=== PATIENT | female | born 1990 | race Hispanic/Latino ===

== ENCOUNTER 2018-06-30 10:22 | Emergency (ER) | payer OTHER ==
--- OUTSIDE RECORDS SUMMARY | 2018-06-30 10:43 | XMS REPORT ---
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
--- OUTSIDE RECORDS SUMMARY | 2018-06-30 10:43 | XMS REPORT ---
:1990 Author Organization eClinicalWorks Care Team Providers Name Role Phone Genevieve Vuong Provider Role Unavailable Allergies, Adverse Reactions, Alerts Substance Reaction Event Type Percocet Info Not Available Drug Allergy Problems Problem Type Condition Code Onset Dates Condition Status Problem Allergic rhinitis, unspecified J30.9 Active seasonality, unspecified trigger Problem Cervical radiculopathy M54.12 Active Problem Chronic back pain M54.9 Active Problem H/O chlamydia infection Z86.19 Active Problem Absent periods N91.2 Active Problem IUD (intrauterine device) in place Z97.5 Active Problem H/O gonorrhea Z86.19 Active Problem Other chronic pain G89.29 Active Problem Hx of ectopic Z87.59 Active Problem H/O unilateral salpingectomy Z90.79 Active Assessment H/O gonorrhea Z86.19 Active Assessment H/O chlamydia infection Z86.19 Active Assessment Hx of ectopic Z87.59 Active Assessment IUD (intrauterine device) in place Z97.5 Active Assessment H/O unilateral salpingectomy Z90.79 Active Assessment IUD check up Z30.431 Active Medications Medication Code Code Instructions Start End Status Dosage System Date Date Probiotic [facility] [id number] - Orally Active not defined Mirena (52 MG) [facility] [id number] 20 MCG/24HR Mar 02, Active not Intrauterine 2013 defined Tramadol HCl [facility] [id number] 50 MG Orally Active 1 tablet every 6 hrs as needed Results No Known Results Summary Purpose eClinicalWorks Submission
--- OUTSIDE RECORDS SUMMARY | 2018-06-30 10:43 | XMS REPORT ---
:1990 [facility] Team Providers Name Role Phone Bob De Leon Provider Role Unavailable Allergies, Adverse Reactions, Alerts Substance Reaction Event Type Percocet Info Not Available Drug Allergy Problems Problem Type Condition Code Onset Dates Condition Status Problem IUD (intrauterine device) in place Z97.5 Active Problem Absent periods N91.2 Active Problem Hx of ectopic Z87.59 Active Problem Repetitive intrusions of sleep G47.9 Active Problem Encounter for removal of Z30.432 Active intrauterine contraceptive device (IUD) Problem Daytime somnolence R40.0 Active Problem H/O gonorrhea Z86.19 Active Problem H/O chlamydia infection Z86.19 Active Problem Encounter for initial prescription Z30.011 Active of contraceptive pills Problem H/O unilateral salpingectomy Z90.79 Active Assessment Encounter to determine O36.80X0 Active viability of , single or unspecified fetus Assessment Encounter for supervision of Z34.91 Active low-risk in first trimester Problem Allergic rhinitis, unspecified J30.9 Active seasonality, unspecified trigger Problem Chronic back pain M54.9 Active Assessment Amenorrhea N91.2 Active Problem Cervical radiculopathy M54.12 Active Problem Other chronic pain G89.29 Active Medications Medication Code Code Instructions Start End Status Dosage System Date Date Pre-Ran NDC 0 - Orally Once a Active 1 tablet day CitraNatal NDC 61300040717 35-1 & 300 MG Jun 07, Active as directed Assure Orally daily 2018 Results Name Result Date Reference Range Unit Abnormality Flag HEMOGLOBIN A1c ----HEMOGLOBIN A1c 5.1 48089860 <5.7 % of total N Hgb TSH ----TSH 2.18 92026208 mIU/L N OBSTETRIC PANEL ----ABSOLUTE 42 10946992 0-200 cells/uL N BASOPHILS ----ABSOLUTE 83 39369820 15-500 cells/uL N EOSINOPHILS ----LYMPHOCYTES 20.2 95004119 % N ----NEUTROPHILS 73.1 07581593 % N ----PLATELET COUNT 268 95041597 140-400 Thousand/uL N ----EOSINOPHILS 0.8 01716323 % N ----RDW 12.1 61735064 11.0-15.0 % N ----MONOCYTES 5.5 79399151 % N ----MCHC 33.4 36665441 32.0-36.0 g/dL N ----MCH 31.3 61822327 27.0-33.0 pg N ----MCV 93.8 88896978 80.0-100.0 fL N ----ABSOLUTE 7602 59406918 7417-5668 cells/uL N NEUTROPHILS ----MPV 10.8 21402281 7.5-12.5 fL N ----ABSOLUTE 572 25112896 200-950 cells/uL N MONOCYTES ----ABSOLUTE 2101 59738343 850-3900 cells/uL N LYMPHOCYTES ----BASOPHILS 0.4 81492573 % N ----ANTIBODY NO ANTIBODIES 20180607 N SCREEN, RBC W/REFL DETECTED ID, TITER AND AG ----ABO GROUP A [id number] ----RH TYPE RH(D) POSITIVE 20180607 ----RPR (DX) NON-REACTIVE [id number] NON-REACTIVE N W/REFL TITER AND CONFIRMATORY TESTING ----HEPATITIS B NON-REACTIVE [id number] NON-REACTIVE N SURFACE ANTIGEN ----RUBELLA 2.31 42767311 index N ANTIBODY (IGG) ----WHITE BLOOD 10.4 45629959 3.8-10.8 Thousand/uL N CELL COUNT ----RED BLOOD CELL 3.86 24763880 3.80-5.10 Million/uL N COUNT ----HEMOGLOBIN 12.1 06423171 11.7-15.5 g/dL N ----HEMATOCRIT 36.2 25670258 35.0-45.0 % N VARICELLA ZOSTER VIRUS AB (IGG) ----VARICELLA 994.80 15232629 index N ZOSTER VIRUS ANTIBODY (IGG) HIV AG/AB 4TH GEN ----HIV AG/AB, 4TH NON-REACTIVE [id number] NON-REACTIVE N GEN Summary Purpose eClinicalWorks Submission
[2018-06-30 11:12] LABS: Urine Blood TRACE (NEG); Urine Glucose NEGATIVE (NEG); Urine Protein NEGATIVE (NEG); Urine Specific Gravity 1.015 (1.005-1.030)
[2018-06-30 11:22] LABS: Absolute Monocytes 0.6 K/uL (0.1-1.3); Absolute Neutrophil 7.2 K/uL (1.8-8.0); Basophils % 0.3 % (0-1.3); Eosinophils % 1.1 % (0-4.4); Hematocrit 35.2 % (36.0-45.0); Lymphocytes % 20.1 % (15.3-44.8); MPV 7.9 fL (7.6-11.3); Monocytes % 6.2 % (3.3-12.3); RBC Red Blood Cell Count 3.82 M/uL (3.86-4.86)
[2018-06-30 11:22] LABS: Urine Bacteria <20 /HPF (<20); Urine Culture Reflex Order NOT NEEDED; Urine RBC <5 /HPF (NONE SEEN)
[2018-06-30] MEDS ORDERED: NA CHLORIDE 0.9% 1,000 ML ONE (11:28)
[2018-06-30] MEDS ORDERED: ACETAMINOPHEN 500 MG TAB ONE (11:28)
[2018-06-30 11:34] LABS: BUN Blood Urea Nitrogen 9 mg/dL (7-18); Bicarbonate 26 mmol/L (21-32); Glucose Level 90 mg/dL (74-106); Potassium 3.7 mmol/L (3.5-5.1); Sodium Level 140 mmol/L (136-145)
--- NOTE | 2018-06-30 12:19 | EDPHYS ---
Physician Documentation [facility] Name: Eliana Glez Age: 27 yrs Sex: Female : 1990 Arrival Date: 06/30/2018 Time: 10:26 Bed 18 Private MD: [facility] ED Physician Sean Sanchez HPI: 06/30 11:36 This 27 yrs old Female presents to ER via Ambulatory with complaints of 12 wks jr8 , Abdominal Pain. 11:36 Onset: The symptoms/episode began/occurred acutely, today. Associated signs and jr8 symptoms: Pertinent positives: headache. Modifying factors: The patient symptoms are alleviated by nothing, the patient symptoms are aggravated by nothing. The patient has not experienced similar symptoms in the past. The patient has not recently seen a physician. Stated that she was generally not feeling well. Started to have lower right abdominal cramping without vaginal bleeding, discharge, or spotting. Stated that she also had a headache. Denies fevers or flu like symptoms . 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 - Social history:: Smoking status: Patient/guardian denies using tobacco, Patient/guardian denies using alcohol. - Ebola Screening: : Patient negative for fever greater than or equal to 101.5 degrees Fahrenheit, and additional compatible Ebola Virus Disease symptoms Patient denies exposure to infectious person Patient denies travel to an Ebola-affected area in the 21 days before illness onset. ROS: 11:36 Eyes: Negative for injury, pain, redness, and discharge, ENT: Negative for injury, jr8 pain, and discharge, Neck: Negative for injury, pain, and swelling, Cardiovascular: Negative for chest pain, palpitations, and edema, Respiratory: Negative for shortness of breath, cough, wheezing, and pleuritic chest pain, Back: Negative for injury and pain, MS/Extremity: Negative for injury and deformity, Skin: Negative for injury, rash, and discoloration. 11:36 Abdomen/GI: Positive for abdominal pain, abdominal cramps, Negative for nausea, vomiting, and diarrhea, abdominal distension, anorexia, dysphagia, hematemesis, black/tarry stool, rectal pain, rectal bleeding, bowel incontinence, flatulence. 11:36 Neuro: Positive for headache, Negative for altered mental status, dizziness, gait disturbance, hearing loss, loss of consciousness, numbness, seizure activity, speech changes, syncope, near syncope, tingling, tinnitus, tremor, visual changes, weakness. Exam: 11:36 Eyes: Pupils equal round and reactive to light, extra-ocular motions intact. Lids and jr8 lashes normal. Conjunctiva and sclera are non-icteric and not injected. Cornea within normal limits. Periorbital areas with no swelling, redness, or edema. ENT: Nares patent. No nasal discharge, no septal abnormalities noted. Tympanic membranes are normal and external auditory canals are clear. Oropharynx with no redness, swelling, or masses, exudates, or evidence of obstruction, uvula midline. Mucous membranes moist. Neck: Trachea midline, no thyromegaly or masses palpated, and no cervical lymphadenopathy. Supple, full range of motion without nuchal rigidity, or vertebral point tenderness. No Meningismus. Cardiovascular: Regular rate and rhythm with a normal S1 and S2. No gallops, murmurs, or rubs. Normal PMI, no JVD. No pulse deficits. Respiratory: Lungs have equal breath sounds bilaterally, clear to auscultation and percussion. No rales, rhonchi or wheezes noted. No increased work of breathing, no retractions or nasal flaring. Back: No spinal tenderness. No costovertebral tenderness. Full range of motion. Skin: Warm, dry with normal turgor. Normal color with no rashes, no lesions, and no evidence of cellulitis. MS/ Extremity: Pulses equal, no cyanosis. Neurovascular intact. Full, normal range of motion. Neuro: Awake and alert, GCS 15, oriented to person, place, time, and situation. Cranial nerves II-XII grossly intact. Motor strength 5/5 in all extremities. Sensory grossly intact. Cerebellar exam normal. Normal gait. 11:36 Abdomen/GI: Inspection: gravid appearance, is noted, Bowel sounds: active, all quadrants, Palpation: soft, in all quadrants, mild abdominal tenderness, in the suprapubic area and right lower quadrant, mass, is not appreciated, rebound tenderness, is not appreciated, voluntary guarding, is not appreciated, involuntary guarding, is not appreciated, no appreciated organomegaly, Indicators: McBurney's point is not tender, Bravo's sign is negative, Rovsing's sign is negative, Liver: tenderness, is not appreciated, FHT's completed by me. HR 140. Vital Signs: 10:35 BP 99 / 59; Pulse 67; Resp 18; Temp 97.9(O); Pulse Ox 97% on R/A; Weight 63.05 kg; hj Height 5 ft. 3 in. (160.02 cm); Pain 8/10; 11:45 BP 103 / 62; Pulse 65; Resp 19; Pulse Ox 100% on R/A; Pain 7/10; ed1 12:47 BP 101 / 70; Pulse 67; Resp 15; Pulse Ox 100% on R/A; Pain 5/10; ed1 10:35 Body Mass Index 24.62 (63.05 kg, 160.02 cm) MDM: 10:40 Patient medically screened. jr8 11:36 Data reviewed: vital signs, nurses notes, lab test result(s), and as a result, I will jr8 discharge patient. Data interpreted: Pulse oximetry: on room air is 97 %. Interpretation: normal. Counseling: I had a detailed discussion with the patient and/or guardian regarding: the historical points, exam findings, and any diagnostic results supporting the discharge/admit diagnosis, lab results, the need for outpatient follow up, an OB/Gyne specialist, to return to the emergency department if symptoms worsen or persist or if there are any questions or concerns that arise at home. 12:17 Response to treatment: the patient's symptoms have markedly improved after treatment, jr8 patient is well hydrated. ED course: No acute findings on labs. FHT normal. Pain better. No spotting or discharge. Will send home to f/u with systems trainer. No indication for US at this time. Knows to come back if worse . 06/30 10:53 Order name: Urine Dipstick--Ancillary (enter results); Complete Time: 11:25 eb 06/30 10:53 Order name: Urine --Ancillary (enter results); Complete Time: 11:25 eb 06/30 10:53 Order name: Urine Microscopic Only; Complete Time: 11:25 eb 06/30 11:05 Order name: CBC with Diff jr8 06/30 11:05 Order name: Basic Metabolic Panel; Complete Time: 11:42 jr8 06/30 11:06 Order name: CBC with Automated Diff; Complete Time: 11:42 EDWV 06/30 10:43 Order name: Urine Test (obtain specimen); Complete Time: 10:52 jr8 06/30 10:43 Order name: Urine Dipstick-Ancillary (obtain specimen); Complete Time: 10:52 jr Administered Medications: 11:19 Drug: NS 0.9% 1000 ml Route: IV; Rate: 1000 ml; Site: right antecubital; ed1 12:30 Follow up: IV Status: Completed infusion; IV Intake: 1000ml ed1 11:19 Drug: Tylenol 1000 mg Route: PO; ed1 12:30 Follow up: Response: No adverse reaction; Pain is unchanged, physician notified ed1 12:30 Drug: Reglan 10 mg Route: IVP; Site: right antecubital; ed1 12:48 Follow up: Response: No adverse reaction ed1 12:31 Drug: Benadryl 25 mg Route: IVP; Site: right antecubital; ed1 12:49 Follow up: Response: No adverse reaction ed1 Disposition: 06/30/18 12:18 Discharged to Home. Impression: Lower abdominal pain, unspecified, Headache. - Condition is Stable. - Discharge Instructions: Abdominal Pain During , Migraine Headache. - Work release form, Medication Reconciliation Form, Thank You Letter, Antibiotic Education, Prescription Opioid Use form. - Follow up: Private Physician; When: 5 - 6 days; Reason: Recheck today's complaints, Continuance of care, Re-evaluation by your physician. - Problem is new. - Symptoms have improved. Addendum: 07/05/2018 11:31 Co-signature as Attending Physician, Sean Sanchez MD I agree with the assessment and k dr plan of care. Signatures: Dispatcher [employer] Sean Licea MD MD [facility] Sapna Dow RN RN iw Michelle Diop RN RN ed1 Marvin Moon PA PA jr8 Alex Lynn RN RN Corrections: (The following items were deleted from the chart) 06/30 12:49 12:18 06/30/2018 12:18 Discharged to Home. Impression: Lower abdominal pain, iw unspecified; Headache. Condition is Stable. Forms are Medication Reconciliation Form, Thank You Letter, Antibiotic Education, Prescription Opioid Use. Follow up: Private Physician; When: 5 - 6 days; Reason: Recheck today's complaints, Continuance of care, Re-evaluation by your physician. Problem is new. Symptoms have improved. jr8
--- NOTE | 2018-06-30 12:19 | ER ---
Nurse's Notes [facility] Name: Eliana Glez Age: 27 yrs Sex: Female : 1990 Arrival Date: 06/30/2018 Time: 10:26 Bed 18 Private MD: Adal Rosas Diagnosis: Lower abdominal pain, unspecified;Headache Presentation: 06/30 10:31 Presenting complaint: Patient states: LMP- 03/29/18; when i wake up, i usually feel hj good and later the day i dont feel good; my head hurts my R lower abd hurts; denies N/V; denies diarrhea; denies fever and chills; denies vaginal bleeding;. Transition of care: patient was not received from another setting of care. Onset of symptoms was June 30, 2018. Risk Assessment: Do you want to hurt yourself or someone else? Patient reports no desire to harm self or others. Initial Sepsis Screen: Does the patient meet any 2 criteria? No. Patient's initial sepsis screen is negative. Does the patient have a suspected source of infection? No. Patient's initial sepsis screen is negative. Care prior to arrival: None. 10:31 Method Of Arrival: Ambulatory 10:31 Acuity: MARK 3 hj Triage Assessment: 10:34 General: Appears in no apparent distress. uncomfortable, Behavior is calm, cooperative, hj appropriate for age. Pain: Complains of pain in abdomen. GI: Reports lower abdominal pain. 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 - Social history:: Smoking status: Patient/guardian denies using tobacco, Patient/guardian denies using alcohol. - Ebola Screening: : Patient negative for fever greater than or equal to 101.5 degrees Fahrenheit, and additional compatible Ebola Virus Disease symptoms Patient denies exposure to infectious person Patient denies travel to an Ebola-affected area in the 21 days before illness onset. Screenin:34 Abuse screen: Denies threats or abuse. Denies injuries from another. Nutritional hj screening: No deficits noted. Tuberculosis screening: No symptoms or risk factors identified. Fall Risk None identified. Assessment: 10:34 GI: Bowel sounds present X 4 quads. hj 10:55 General: Appears in no apparent distress. Behavior is calm, cooperative. Pain: ed1 Complains of pain in right lower quadrant Pain does not radiate. Pain currently is 8 out of 10 on a pain scale. Quality of pain is described as sharp, Pain began 2-3 days ago. Is continuous. Neuro: Level of Consciousness is awake, alert, obeys commands, Oriented to person, place, time, situation. Cardiovascular: Denies chest pain, Heart tones S1 S2 present. Respiratory: Airway is patent Respiratory effort is even, unlabored, Respiratory pattern is regular, symmetrical, Breath sounds are clear bilaterally. GI: Abdomen is non-distended, Bowel sounds present X 4 quads. Abd is soft and non tender X 4 quads. Reports lower abdominal pain, nausea. : Denies burning with urination, cramping discharge, vaginal bleeding. EENT: No signs and/or symptoms were reported regarding the EENT system. Derm: Skin is intact, is healthy with good turgor, Skin is dry, Skin is normal, Skin temperature is warm. Musculoskeletal: Circulation, motion, and sensation intact. 11:45 Reassessment: Patient appears in no apparent distress at this time. No changes from ed1 previously documented assessment. Patient and/or family updated on plan of care and expected duration. Pain level reassessed. Patient is alert, oriented x 3, equal unlabored respirations, skin warm/dry/pink. Patient states symptoms have not improved. 12:47 Reassessment: Patient appears in no apparent distress at this time. Patient and/or ed1 family updated on plan of care and expected duration. Pain level reassessed. Patient is alert, oriented x 3, equal unlabored respirations, skin warm/dry/pink. Patient states feeling better. Patient states symptoms have improved. Vital Signs: 10:35 BP 99 / 59; Pulse 67; Resp 18; Temp 97.9(O); Pulse Ox 97% on R/A; Weight 63.05 kg; hj Height 5 ft. 3 in. (160.02 cm); Pain 8/10; 11:45 BP 103 / 62; Pulse 65; Resp 19; Pulse Ox 100% on R/A; Pain 7/10; ed1 12:47 BP 101 / 70; Pulse 67; Resp 15; Pulse Ox 100% on R/A; Pain 5/10; ed1 10:35 Body Mass Index 24.62 (63.05 kg, 160.02 cm) hj Vitals: 11:01 Heart Tones 140. ed1 ED Course: 10:26 Patient arrived in ED. mr 10:27 Adal Rosas DO is Private Physician. mr 10:33 Triage completed. hj 10:34 Arm band placed on right wrist. hj 10:34 Patient has correct armband on for positive identification. Placed in gown. Bed in low hj position. Call light in reach. 10:40 Marvin Moon PA is PHCP. jr8 10:40 Sean Sanchez MD is Attending Physician. jr8 10:52 Michelle Diop RN is Primary Nurse. ed1 11:14 Initial lab(s) drawn, by me, sent to lab. Inserted saline lock: 22 gauge in right ed1 antecubital area, using aseptic technique. Blood collected. 11:46 CBC with Diff Sent. ed1 12:47 No provider procedures requiring assistance completed. IV discontinued, intact, ed1 bleeding controlled, No redness/swelling at site. Pressure dressing applied. Administered Medications: 11:19 Drug: NS 0.9% 1000 ml Route: IV; Rate: 1000 ml; Site: right antecubital; ed1 12:30 Follow up: IV Status: Completed infusion; IV Intake: 1000ml ed1 11:19 Drug: Tylenol 1000 mg Route: PO; ed1 12:30 Follow up: Response: No adverse reaction; Pain is unchanged, physician notified ed1 12:30 Drug: Reglan 10 mg Route: IVP; Site: right antecubital; ed1 12:48 Follow up: Response: No adverse reaction ed1 12:31 Drug: Benadryl 25 mg Route: IVP; Site: right antecubital; ed1 12:49 Follow up: Response: No adverse reaction ed1 Intake: 12:30 IV: 1000ml; Total: 1000ml. ed1 Outcome: 12:18 Discharge ordered by . jr8 12:47 Discharged to home ambulatory, with significant other. ed1 12:47 Condition: good 12:47 Discharge instructions given to patient, Instructed on discharge instructions, follow up and referral plans. Demonstrated understanding of instructions, follow-up care. 12:49 Patient left the ED. iw Signatures: Ferdinand Inessa morales Sapna Dow RN RN iw Michelle Diop RN RN ed1 Marvin Moon PA PA jr8 Alex Lynn RN RN hj Corrections: (The following items were deleted from the chart) 10:38 10:35 Pulse 67bpm; Resp 18bpm; Pulse Ox 97% RA; Temp 97.9F Oral; 63.05 kg; Height 5 ft. hj 3 in.; BMI: 24.6; Pain 8/10; hj 10:39 10:35 Pulse 67bpm; Resp 18bpm; Pulse Ox 97% RA; Temp 97.9F Oral; 63.05 kg; Height 5 ft. hj 3 in.; BMI: 24.6; Pain 8/10; hj
[2018-06-30] MEDS ORDERED: METOCLOPRAMIDE 10 MG/2mL INJ ONE (12:36)
[2018-06-30] MEDS ORDERED: DIPHENHYDRAMINE 50 MG/ML VIAL ONE (12:36)
== END 2018-06-30 12:49 | disposition home or self-care (01) ==
LOC: ER 10:22
DX: R51 Headache (principal); Z88.5 Allergy status to narcotic agent; Z3A.12 12 weeks gestation of pregnancy
CPT/HCPCS: 36415; 80048; 81003; 81015; 81025; 85025; 96361; 96374; 96375; 99284; J2765; J7030